=== PATIENT | female | born 1945 | race American Indian/Alaskan Native ===

== ENCOUNTER 2016-09-08 14:02 | Outpatient (CLI) | payer BC, MEDICARE ==
[2016-09-08 14:49] LABS: Albumin 3.9 g/dL (3.9-5); Anion Gap 18 mmol/L; BUN/Creatinine Ratio 26.66; Blood Urea Nitrogen 24 mg/dL (7-17); Calcium 9.3 mg/dL (8.4-10.2); Carbon Dioxide 24 mmol/L (22-30); Chloride 106.8 mmol/L (98-107); Glucose 82 mg/dL (65-100); Potassium 3.7 mmol/L (3.6-5.0); Sodium 145 mmol/L (137-145)
== END 2016-09-08 14:03 | disposition home or self-care (01) ==
LOC: LAB 14:02
PROVIDERS: ATTEND Internal Medicine Nephrology
DX: I10 Essential (primary) hypertension (principal); N20.0 Calculus of kidney; N13.30 Unspecified hydronephrosis; R94.4 Abnormal results of kidney function studies
CPT/HCPCS: 36415; 80048; 82040; 84100

== ENCOUNTER 2016-09-23 11:06 | Outpatient (CLI) | payer BC ==
--- NOTE | 2016-09-24 10:00 | Ultrasound Report ---
ULTRASOUND RENAL BILATERAL INDICATION: Abnormal kidney function. COMPARISON: Ultrasound and noncontrast CT exams performed between June and November 2014. FINDINGS: Renal sonography demonstrates renal cortical echogenicity within normal limits. Grossly preserved contours. RIGHT KIDNEY measures somewhat small at 7.9 x 4.7 x 5.1 cm with cortical thickness of 1.1 cm, though length approximately 8.[address] No right hydronephrosis. LEFT KIDNEY is 8.8 x 4.1 x 4.7 cm with cortical thickness of 1.7 cm. Slight upper, lower pole and some interpolar collecting system fullness noted, overall less prominent since September 2014 ultrasound. Hypoechoic focus more centrally in the left renal pelvis relatively more prominent/dilated than the distal collecting systems and on correlation with prior CT may be more suggestive of parapelvic cysts rather than hydronephrosis without any evidence of ureteral dilatation as well. Urinary bladder suboptimally distended and assessed. CONCLUSION: 1. Possible left renal parapelvic cysts, though subtle intrarenal collecting system fullness not entirely excluded, as described. Correlation with more remote CT or MRI imaging with contrast would also be helpful in above assessment, if available from an outside institution. 2. Few other findings, as above. Thank you for the opportunity to participate in this patient's care.
== END 2016-09-23 11:07 | disposition home or self-care (01) ==
LOC: US 11:06
PROVIDERS: ATTEND Internal Medicine Nephrology
DX: R94.4 Abnormal results of kidney function studies (principal)
CPT/HCPCS: 76770

== ENCOUNTER 2017-11-27 12:45 | Outpatient (CLI) | payer BC, MEDICARE ==
[2017-11-27 13:41] LABS: Albumin 4.1 g/dL (3.9-5); BUN/Creatinine Ratio 19; Blood Urea Nitrogen 17 mg/dL (7-17); Calcium 9.5 mg/dL (8.4-10.2); Hemolysis Index 29; Uric Acid 6.9 mg/dL (3.5-7.6)
== END 2017-11-27 12:46 | disposition home or self-care (01) ==
LOC: LAB 12:45
PROVIDERS: ATTEND Internal Medicine Nephrology
DX: I10 Essential (primary) hypertension (principal); R94.4 Abnormal results of kidney function studies; N20.0 Calculus of kidney; N13.30 Unspecified hydronephrosis; Z90.710 Acquired absence of both cervix and uterus
CPT/HCPCS: 36415; 80048; 82040; 84100; 84550

== ENCOUNTER 2018-05-27 11:11 | Outpatient (CLI) | payer BC ==
[2018-05-27 11:51] LABS: Albumin 4.4 g/dL (3.9-5); BUN/Creatinine Ratio 22; Blood Urea Nitrogen 22 mg/dL (7-17); Calcium 9.9 mg/dL (8.4-10.2); Hemolysis Index 4
== END 2018-05-27 11:12 | disposition home or self-care (01) ==
LOC: LAB 11:11
PROVIDERS: ATTEND Internal Medicine Nephrology
DX: R94.4 Abnormal results of kidney function studies (principal); I10 Essential (primary) hypertension; Z90.710 Acquired absence of both cervix and uterus
CPT/HCPCS: 36415; 80048; 82040; 84100

== ENCOUNTER 2018-06-17 12:03 | Outpatient (CLI) | payer BC ==
[2018-06-17 12:44] LABS: Bilirubin,Urine NEG (Negative); Blood,Urine NEG (Negative); Color,Urine Yellow (Yellow); Mucus,Urine FEW /HPF; Protein,Urine <15 mg/dL mg/dL (Negative); Urobilinogen,Urine < 2.0 mg/dL (<2.0)
[2018-06-17 13:05] LABS: Albumin 4.3 g/dL (3.9-5); BUN/Creatinine Ratio 17; Blood Urea Nitrogen 17 mg/dL (7-17); Calcium 9.9 mg/dL (8.4-10.2); Hemolysis Index 147
== END 2018-06-17 12:04 | disposition home or self-care (01) ==
LOC: LAB 12:03
PROVIDERS: ATTEND Internal Medicine Nephrology
DX: I10 Essential (primary) hypertension (principal); R94.4 Abnormal results of kidney function studies; N20.0 Calculus of kidney; N13.30 Unspecified hydronephrosis; Z90.710 Acquired absence of both cervix and uterus
CPT/HCPCS: 36415; 80048; 81001; 82040; 84100

== ENCOUNTER 2018-11-17 12:04 | Inpatient (IN) | payer MEDICARE ==
--- NOTE | 2018-11-17 12:26 | Emergency Department Report ---
Blank Doc - Documentation Documentation: This is a 73-year-old female that presents with chest pain and SOB. This initial assessment/diagnostic orders/clinical plan/treatment(s) is/are subject to change based on patient's health status, clinical progression and re- assessment by fellow clinical providers in the ED. Further treatment and workup at subsequent clinical providers discretion. Patient/guardians urged not to elope from the ED as their condition may be serious if not clinically assessed and managed. Initial orders include: 1- Patient sent to MAIN for further evaluation and treatment 2- labs 3- EKG 4- CXR
--- NOTE | 2018-11-17 12:57 | XRay Report ---
CHEST 2 VIEWS INDICATION / CLINICAL INFORMATION: Chest Pain. Heaviness in the chest for a few days. COMPARISON: None available. FINDINGS: SUPPORT DEVICES: None. HEART / MEDIASTINUM: The heart size and pulmonary vasculature are normal. There is mild aortic tortuo sity without aneurysm. LUNGS / PLEURA: No significant pulmonary or pleural abnormality. No pneumothorax. ADDITIONAL FINDINGS: No significant additional findings. IMPRESSION: No acute findings. Signer Name: Danny Anand MD Signed: 11/17/2018 12:53 PM Workstation Name: [id number]
[2018-11-17 13:13] LABS: Basophils % (Auto) 0.7 % (0.0-1.8); Eosinophils # (Auto) 0.1 K/mm3 (0.0-0.4); Eosinophils % (Auto) 2.3 % (0.0-4.3); Hematocrit 43.7 % (30.3-42.9); Hemoglobin 14.6 gm/dl (10.1-14.3); Lymphocytes # (Auto) 1.3 K/mm3 (1.2-5.4); Lymphocytes % (Auto) 24.3 % (13.4-35.0); Mean Corpuscular HGB Conc 34 % (30-34); Mean Corpuscular Volume 90 fl (79-97); Monocytes # (Auto) 0.4 K/mm3 (0.0-0.8); Monocytes % (Auto) 8.4 % (0.0-7.3); Platelet Count 207 K/mm3 (140-440); Red Blood Count 4.87 M/mm3 (3.65-5.03); Red Cell Distribution Width 16.6 % (13.2-15.2)
[2018-11-17 13:23] LABS: INR 0.98 (0.87-1.13)
[2018-11-17 13:24] LABS: Partial Thromboplastin Time 27.5 Sec. (24.2-36.6)
--- NOTE | 2018-11-17 13:48 | Emergency Department Report ---
ED Chest Pain HPI - General Chief Complaint: Chest Pain Stated Complaint: CHEST PAIN Time Seen by Provider: 11/17/18 12:24 Source: patient Mode of arrival: Ambulatory Limitations: No Limitations - History of Present Illness Initial Comments: 73-year-old -Dominican female presents to the emergency department with complaint of some intermittent midsternal chest pressure and shortness of breath that has been going on for the past 1-2 days. She has not taken anything for her symptoms prior to arrival. No recent travel or sick contacts at home. She denies any fever, back pain, diaphoresis, nausea, vomiting or lower extremity swelling. She has a past medical history of hypertension. No family history of early cardiac disease or cardiac events. Her primary care physician is Dr. Flores. - Related Data Home Medications Medication Instructions Recorded Confirmed Last Taken Allopurinol [Zyloprim] 1 tab PO DAILY 11/17/18 11/17/18 Unknown Aspirin [Aspirin BABY CHEW TAB] 1 tab PO DAILY 11/17/18 11/17/18 Unknown AtorvaSTATin [Lipitor] 1 tab PO DAILY 11/17/18 11/17/18 Unknown Olmesartan Medoxomil [Benicar] 1 tab PO DAILY 11/17/18 11/17/18 Unknown hydroCHLOROthiazide [HCTZ] 1 tab PO DAILY 11/17/18 11/17/18 Unknown metFORMIN [Glucophage] 1 tab PO BID 11/17/18 11/17/18 Unknown Allergies Allergy/AdvReac Type Severity Reaction Status Date / Time No Known Allergies Allergy Unverified 06/23/14 14:47 Heart Score - HEART Score History: Moderately suspicious EKG: Normal Age: > 65 Risk factors: 1-2 risk factors Troponin: < normal limit HEART Score: 4 - Critical Actions Critical Actions: 4-6 pts:12-16.6% risk of adverse cardiac event. Should be admitted ED Review of Systems ROS: Stated complaint: CHEST PAIN Other details as noted in HPI Comment: All other systems reviewed and negative Constitutional: denies: chills, fever Eyes: denies: eye pain, vision change ENT: denies: ear pain, throat pain Respiratory: shortness of breath. denies: cough Cardiovascular: chest pain. denies: palpitations Gastrointestinal: denies: abdominal pain, vomiting Genitourinary: denies: dysuria, discharge Musculoskeletal: denies: back pain, arthralgia Skin: denies: rash, lesions Neurological: denies: headache, weakness ED Past Medical Hx - Past Medical History Previous Medical History?: Yes Hx Hypertension: Yes - Surgical History Additional Surgical History: HYSTERECTOMY - Social History Smoking Status: Never Smoker Substance Use Type: None - Medications Home Medications: Home Medications Medication Instructions Recorded Confirmed Last Taken Type Allopurinol [Zyloprim] 1 tab PO DAILY 11/17/18 11/17/18 Unknown History Aspirin [Aspirin BABY CHEW TAB] 1 tab PO DAILY 11/17/18 11/17/18 Unknown History AtorvaSTATin [Lipitor] 1 tab PO DAILY 11/17/18 11/17/18 Unknown History Olmesartan Medoxomil [Benicar] 1 tab PO DAILY 11/17/18 11/17/18 Unknown History hydroCHLOROthiazide [HCTZ] 1 tab PO DAILY 11/17/18 11/17/18 Unknown History metFORMIN [Glucophage] 1 tab PO BID 11/17/18 11/17/18 Unknown History ED Physical Exam - General Limitations: No Limitations - Other Other exam information: GENERAL: The patient is well-developed well-nourished. HENT: Normocephalic. Atraumatic. Patient has moist mucous membranes. EYES: Extraocular motions are intact. NECK: Supple. Trachea is midline. CHEST/LUNGS: Clear to auscultation. There is no respiratory distress noted. HEART/CARDIOVASCULAR: Regular. There is no tachycardia. There is no murmur. ABDOMEN: Abdomen is soft, nontender. Patient has normal bowel sounds. There is no abdominal distention. SKIN: Skin is warm and dry. NEURO: The patient is awake, alert, and oriented. The patient is cooperative. The patient has no focal neurologic deficits. The patient has normal speech. MUSCULOSKELETAL: There is no tenderness or deformity. There is no limitation range of motion. There is no evidence of acute injury. ED Course Vital Signs 11/17/18 11/17/18 11/17/18 12:26 13:42 13:46 Temperature 97.9 F Pulse Rate 78 Respiratory 20 Rate Blood Pressure 118/80 Blood Pressure [Left] O2 Sat by Pulse 97 100 100 Oximetry 11/17/18 11/17/18 11/17/18 14:00 14:02 14:15 Temperature 98.5 F Pulse Rate 71 70 74 Respiratory 17 15 21 Rate Blood Pressure 143/73 Blood Pressure 143/73 [Left] O2 Sat by Pulse 100 100 100 Oximetry 11/17/18 11/17/18 11/17/18 14:31 15:15 16:00 Temperature Pulse Rate 69 66 55 L Respiratory 18 14 16 Rate Blood Pressure 143/73 143/73 140/64 Blood Pressure [Left] O2 Sat by Pulse 100 100 100 Oximetry 11/17/18 11/17/18 11/17/18 18:00 18:31 18:41 Temperature Pulse Rate 56 L 58 L 63 Respiratory 18 13 13 Rate Blood Pressure 142/76 149/68 Blood Pressure 149/68 [Left] O2 Sat by Pulse 99 100 100 Oximetry 11/17/18 11/17/18 11/17/18 19:15 19:31 20:31 Temperature 98.2 F Pulse Rate 58 L 59 L 88 Respiratory 12 12 Rate Blood Pressure 150/84 160/78 Blood Pressure 159/71 [Left] O2 Sat by Pulse 100 99 97 Oximetry 11/17/18 11/17/18 11/17/18 21:00 21:31 21:41 Temperature Pulse Rate 65 62 60 Respiratory 13 13 11 L Rate Blood Pressure 140/57 131/61 131/61 Blood Pressure [Left] O2 Sat by Pulse 100 100 100 Oximetry PILI score - Pili Score Age > 65: (1) Yes Aspirin use within the Past 7 Days: (0) No 3 or more CAD Risk Factors: (0) No 2 or more Angina events in past 24 hrs: (1) Yes Known CAD with more than 50% Stenosis: (0) No Elevated Cardiac Markers: (0) No ST Deviation Greater than 0.5mm: (0) No PILI Score: 2 ED Medical Decision Making - Lab Data Result diagrams: 11/18/18 04:02 11/18/18 04:02 - EKG Data -: EKG Interpreted by Me EKG shows normal: sinus rhythm, axis, intervals, QRS complexes (low voltage), ST-T waves Rate: normal - EKG Data When compared to previous EKG there are: previous EKG unavailable Interpretation: normal EKG - Radiology Data Radiology results: report reviewed interpreted by me: Chest x-ray does not show any acute process. There are no pleural effusions, obvious pneumonia and there is no pneumothorax. CT angio chest INDICATION / CLINICAL INFORMATION: CP, elevated dimer. TECHNIQUE: Axial CT images were obtained after injection of Omnipaque 350, 100 cc IV contrast using CTA protocol. 3 plane MIP / 3D reconstructions were produced. All CT scans at this location are performed using CT dose reduction for ALARA by means of automated exposure control. COMPARISON: None available. FINDINGS: Evaluation of the lungs demonstrate mild dependent atelectasis and basilar interstitial disease. Negative for mass, infiltrate or pleural fluid. No mediastinal mass or adenopathy is present. Imaging of the upper abdomen demonstrates renal peripelvic cysts left greater than right and a 3.3 cm cyst within the lateral segment of the left hepatic lobe. The bolus is suboptimal but adequate. Negative for pulmonary embolus, dissection or aneurysm. Mild ectasia is noted at the aorta. IMPRESSION: Negative for pulmonary embolus or pneumonia. - Medical Decision Making This patient presents to the emergency department with complaint of a pressure- like sensation to the chest like someone is sitting on her chest. EKG did not show any signs of ST elevation HI. She has the risk factors of advanced age and hypertension. EKG did not show any signs of ST elevation HI. So far the patient has negative troponins 2 but she did have a slightly elevated and equiv ocal d-dimer. Chest x-ray did not show any acute process. CT angiography did not show any pulmonary embolism, dissection, aneurysm or any other acute process. However the patient still continues to have some chest discomfort and has not had a full cardiac workup including a stress test in quite some time. She has a heart score of 4. Follow these reasons, the patient will be admitted to the hospital for further evaluation and treatment and was accepted for admission by the hospitalist, Dr. Sheridan. - Differential Diagnosis HI, PE, costochondritis, GERD Critical Care Time: No Critical care attestation.: If time is entered above; I have spent that time in minutes in the direct care of this critically ill patient, excluding procedure time. ED Disposition Clinical Impression: Angina at rest, Acute chest pain HTN (hypertension) Qualifiers: Hypertension type: essential hypertension Qualified Code(s): I10 - Essential (primary) hypertension Disposition: OP ADMIT IP TO THIS HOSP Is pt being admited?: Yes Condition: Fair Time of Disposition: 10:29
[2018-11-17 14:50] LABS: BUN/Creatinine Ratio 20; Blood Urea Nitrogen 22 mg/dL (7-17); Calcium 10.1 mg/dL (8.4-10.2); Hemolysis Index 10
[2018-11-17] MEDS ORDERED: TORADOL IV ONE (18:18)
[2018-11-17] MEDS ORDERED: BABY ASPIRIN PO ONE (18:18)
--- NOTE | 2018-11-17 19:21 | History and Physical Report ---
History of Present Illness Chief complaint: i have a pain in my chest History of present illness: 73 YO Female with HTN presents to ED for evaluation. Pt states that she has experienced pain in her chest over the past 2 days with worsening symptoms over the past 1 day. Pt states that her pain is 5/10, Midsternal, Nonradiating, not worsened with exertion, not relieved with rest, associated with shortness of breath. Pt acknowledges decreased exercise tolerance, dypsnea with exertion, dypsnea at rest. Pt transported to [facility] via private vehicle. Pt seen and evaluated in ED and found to have Angina as well as symptoms consistent with Diastolic CHF. Pt admitted to telemetry and initiated on chest pain protocol. Cardiology team consulted in ED. Pt denies fever, chills, palpitations, NVD, Prolonged travel/immobility, unilateral leg swelling, calf pain, Individual/Family history of DVT/PE/Bleeding/Blood Clotting Disorders. No prior admission for review. All listed medication reconciled at time of admission. Past History Past Medical History: hypertension Past Surgical History: hysterectomy Social history: . denies: smoking, alcohol abuse, prescription drug abuse Family history: hypertension Medications and Allergies Allergies Allergy/AdvReac Type Severity Reaction Status Date / Time No Known Allergies Allergy Unverified 06/23/14 14:47 Home Medications Medication Instructions Recorded Confirmed Last Taken Type Ciprofloxacin HCl [Ciprofloxacin 500 mg PO Q12H #20 tab 06/23/14 Unknown Rx TAB] HYDROcodone/APAP 5-325 [[place] 1 each PO Q6HR PRN #20 tablet 06/23/14 Unknown Rx 5-325 mg TAB] Review of Systems Constitutional: no weight loss, no weight gain, no fever, no chills Ears, nose, mouth and throat: no ear pain, no ear discharge, no tinnitis, no decreased hearing, no nose pain, no nasal congestion Breasts: no change in shape, no swelling, no mass Cardiovascular: chest pain, shortness of breath, dyspnea on exertion, decreased exercise tolerance, no palpitations, no rapid/irregular heart beat, no edema Respiratory: no cough, no cough with sputum, no excessive sputum, no hemoptysis Gastrointestinal: no nausea, no vomiting, no diarrhea, no constipation Genitourinary Female: no pelvic pain, no flank pain, no menorrhagia, no dysuria, no urinary frequency Rectal: no pain, no incontinence, no bleeding Musculoskeletal: no neck stiffness, no neck pain, no shooting arm pain, no arm numbness/tingling, no low back pain Integumentary: no rash, no pruritis, no redness, no sores, no wounds Neurological: no paralysis, no weakness, no parathesias, no numbness, no tingling, no seizures Psychiatric: no anxiety, no memory loss, no change in sleep habits, no sleep disturbances, no insomnia, no hypersomnia, no change in appetite Endocrine: no cold intolerance, no heat intolerance, no polyphagia, no excessive thirst, no polydipsia, no polyuria Hematologic/Lymphatic: no easy bruising, no easy bleeding, no lymphadenopathy, no lymphedema Allergic/Immunologic: no urticaria, no allergic rhinitis, no wheezing, no persistent infections Exam - Constitutional Vitals: Temp Pulse Resp BP Pulse Ox 98.5 F 63 13 149/68 100 11/17/18 14:02 11/17/18 18:41 11/17/18 18:41 11/17/18 18:41 11/17/18 18:41 General appearance: Present: mild distress - EENT Eyes: Present: PERRL ENT: hearing intact, clear oral mucosa - Neck Neck: Present: supple, normal ROM - Respiratory Respiratory effort: normal Respiratory: bilateral: CTA - Cardiovascular Heart Sounds: Present: S1 & S2. Absent: rub, click - Extremities Extremities: pulses symmetrical, No edema Peripheral Pulses: within normal limits - Abdominal General gastrointestinal: Present: soft, non-tender, non-distended, normal bowel sounds Female genitourinary: Present: normal - Integumentary Integumentary: Present: clear, warm, dry - Musculoskeletal Musculoskeletal: gait normal, strength equal bilaterally - Psychiatric Psychiatric: appropriate mood/affect, intact judgment & insight - Neurologic Neurologic: CNII-XII intact, moves all extremities Results - Labs CBC & Chem 7: 11/17/18 12:59 11/17/18 12:59 Labs: Abnormal lab results 11/17/18 11/17/18 11/17/18 Range/Units 12:59 12:59 13:58 Hgb 14.6 H (10.1-14.3) gm/dl Hct 43.7 H (30.3-42.9) % RDW 16.6 H (13.2-15.2) % [place] % (Auto) 8.4 H (0.0-7.3) % D-Dimer 259.00 H (0-234) ng/mlDDU Chloride 108.1 H (98-107) mmol/L Carbon Dioxide 21 L (22-30) mmol/L BUN 22 H (7-17) mg/dL Assessment and Plan - Patient Problems (1) Angina at rest Current Visit: Yes Status: Acute Plan to address problem: Admit to telemetry, serial cardiac enzymes, ekg, telemetry, cardiology consulted in ED, Morphine, supplemental oxygen, nitro, aspirin, stress test (2) Diastolic CHF Current Visit: Yes Status: Acute Qualifiers: Heart failure chronicity: acute Qualified Code(s): I50.31 - Acute diastolic (congestive) heart failure Plan to address problem: Admit to telemetry, strict I/O, daily weight, afterload reduction, monitor uop q shift, chest x ray, pulse oximetry, Echo, cardiology consulted, thyroid panel, magnesium level. (3) HTN (hypertension) Current Visit: Yes Status: Acute Qualifiers: Hypertension type: essential hypertension Qualified Code(s): I10 - Essential (primary) hypertension Plan to address problem: Monitor BP q shift, supportive care. (4) DVT prophylaxis Current Visit: Yes Status: Acute Plan to address problem: SCD to BLE while in bed, Pt ambulatory.
[2018-11-17] MEDS ORDERED: MORPHINE IV PRN (19:22)
[2018-11-17] MEDS ORDERED: SODIUM CHLORIDE FLUSH SYRINGE 10 ML IV PRN ×2 (19:22)
[2018-11-17] MEDS ORDERED: ZOFRAN IV PRN (19:22)
[2018-11-17] MEDS ORDERED: NITROSTAT SL PRN (19:22)
[2018-11-17] MEDS ORDERED: PROVENTIL IH PRN (19:22)
[2018-11-17] MEDS ORDERED: TYLENOL PO PRN (19:22)
[2018-11-17] MEDS ORDERED: PERCOCET 5/325 PO PRN (19:22)
--- NOTE | 2018-11-17 20:28 | Cat Scan Report ---
CT angio chest INDICATION / CLINICAL INFORMATION: CP, elevated dimer. TECHNIQUE: Axial CT images were obtained after injection of Omnipaque 350, 100 cc IV contrast using CTA protocol . 3 plane MIP / 3D reconstructions were produced. All CT scans at this location are performed using C T dose reduction for ALARA by means of automated exposure control. COMPARISON: None available. FINDINGS: Evaluation of the lungs demonstrate mild dependent atelectasis and basilar interstitial disease. Nega tive for mass, infiltrate or pleural fluid. No mediastinal mass or adenopathy is present. Imaging of the upper abdomen demonstrates renal peripelvic cysts left greater than right and a 3.3 cm cyst withi n the lateral segment of the left hepatic lobe. The bolus is suboptimal but adequate. Negative for pulmonary embolus, dissection or aneurysm. Mild ec hilda is noted at the aorta. IMPRESSION: Negative for pulmonary embolus or pneumonia. Signer Name: Kings Helton MD Signed: 11/17/2018 8:23 PM Workstation Name: [id number]
[2018-11-17 20:37] LABS: Free T4 (Free Thyroxine) 1.37 ng/dL (0.76-1.46)
[2018-11-17] MEDS: SODIUM CHLORIDE FLUSH SYRINGE 10 ML IV SCH (22:33)
[2018-11-17] MEDS: PEPCID PO SCH (22:33)
[2018-11-18 04:30] LABS: Basophils % (Auto) 0.6 % (0.0-1.8); Eosinophils # (Auto) 0.2 K/mm3 (0.0-0.4); Eosinophils % (Auto) 4.1 % (0.0-4.3); Hematocrit 42.1 % (30.3-42.9); Lymphocytes # (Auto) 1.4 K/mm3 (1.2-5.4); Lymphocytes % (Auto) 29.7 % (13.4-35.0); Mean Corpuscular HGB Conc 33 % (30-34); Mean Corpuscular Volume 89 fl (79-97); Monocytes # (Auto) 0.4 K/mm3 (0.0-0.8); Monocytes % (Auto) 8.6 % (0.0-7.3); Platelet Count 207 K/mm3 (140-440); Red Blood Count 4.72 M/mm3 (3.65-5.03); Red Cell Distribution Width 17.2 % (13.2-15.2)
[2018-11-18 04:58] LABS: Alanine Aminotransferase 20 units/L (7-56); Albumin 3.6 g/dL (3.9-5); BUN/Creatinine Ratio 23; Blood Urea Nitrogen 21 mg/dL (7-17); Calcium 8.9 mg/dL (8.4-10.2); Hemolysis Index 10
[2018-11-18] MEDS ORDERED: K-DUR PO ONE (05:28)
[2018-11-18] MEDS ORDERED: LEXISCAN IV ONE ×2 (07:26→07:32)
[2018-11-18] MEDS: PEPCID PO SCH (14:34)
[2018-11-18] MEDS: SODIUM CHLORIDE FLUSH SYRINGE 10 ML IV SCH (14:35)
[2018-11-18 17:13] VITALS: BP 111/68
--- NOTE | 2018-11-18 18:26 | Consultation ---
History of Present Illness Consult date: 11/18/18 Consult reason: chest pain History of present illness: 73-year-old woman admitted to the hospital with atypical, nonexertional chest pain. Prior history of hypertension and diabetes. On presentation, ECG was sinus rhythm, benign with no acute ischemic changes, cardiac isoenzymes are negative. She underwent a Lexiscan thallium stress test, normal perfusion study. An echocardiogram demonstrated normal left ventricular study function, ejection fraction 50-55%. Past History Past Medical History: diabetes, hypertension Past Surgical History: hysterectomy Social history: . denies: smoking, alcohol abuse, prescription drug abuse Family history: hypertension Medications and Allergies Allergies Allergy/AdvReac Type Severity Reaction Status Date / Time No Known Allergies Allergy Unverified 06/23/14 14:47 Home Medications Medication Instructions Recorded Confirmed Last Taken Type Allopurinol [Zyloprim] 1 tab PO DAILY 11/17/18 11/17/18 Unknown History Aspirin [Aspirin BABY CHEW TAB] 1 tab PO DAILY 11/17/18 11/17/18 Unknown History AtorvaSTATin [Lipitor] 1 tab PO DAILY 11/17/18 11/17/18 Unknown History Olmesartan Medoxomil [Benicar] 1 tab PO DAILY 11/17/18 11/17/18 Unknown History hydroCHLOROthiazide [HCTZ] 1 tab PO DAILY 11/17/18 11/17/18 Unknown History metFORMIN [Glucophage] 1 tab PO BID 11/17/18 11/17/18 Unknown History Active Meds: Active Medications Acetaminophen (Tylenol) 650 mg PO Q4H PRN PRN Reason: Pain MILD(1-3)/Fever >100.5/NEVAREZ Albuterol (Proventil) 2.5 mg IH Q4HRT PRN PRN Reason: Shortness Of Breath Famotidine (Pepcid) 10 mg PO BID WINDY Last Admin: 11/18/18 14:34 Dose: 10 mg Documented by: Morphine Sulfate (Morphine) 2 mg IV Q4H PRN PRN Reason: Pain, Moderate (4-6) Nitroglycerin (Nitrostat) 0.4 mg SL Q5M PRN PRN Reason: Chest Pain Ondansetron HCl (Zofran) 4 mg IV Q8H PRN PRN Reason: Nausea And Vomiting Oxycodone/Acetaminophen (Percocet 5/325) 1 tab PO Q6H PRN PRN Reason: Pain, Moderate (4-6) Sodium Chloride (Sodium Chloride Flush Syringe 10 Ml) 10 ml IV BID WINDY Last Admin: 11/18/18 14:35 Dose: 10 ml Documented by: Sodium Chloride (Sodium Chloride Flush Syringe 10 Ml) 10 ml IV PRN PRN PRN Reason: LINE FLUSH Sodium Chloride (Sodium Chloride Flush Syringe 10 Ml) 10 ml IV PRN PRN PRN Reason: LINE FLUSH Review of Systems Cardiovascular: chest pain, shortness of breath, no orthopnea, no palpitations, no rapid/irregular heart beat, no edema, no syncope, no lightheadedness Physical Examination Vital Signs Temp Pulse Resp BP Pulse Ox 97.9 F 78 20 118/80 97 11/17/18 12:26 11/17/18 12:26 11/17/18 12:26 11/17/18 12:26 11/17/18 12:26 General appearance: no acute distress HEENT: Positive: PERRL Neck: Positive: neck supple Cardiac: Positive: Reg Rate and Rhythm Lungs: Positive: clear to auscultation Neuro: Positive: Grossly Intact Abdomen: Positive: Soft Female genitourinary: deferred Skin: Positive: Clear Extremities: Absent: edema Results 11/18/18 04:02 11/18/18 04:02 Cardiac Enzymes 11/18/18 Range/Units 04:02 AST 20 (5-40) units/L CBC 11/18/18 Range/Units 04:02 WBC 4.6 (4.5-11.0) K/mm3 RBC 4.72 (3.65-5.03) M/mm3 Hgb 14.0 (10.1-14.3) gm/dl Hct 42.1 (30.3-42.9) % Plt Count 207 (140-440) K/mm3 Lymph # 1.4 (1.2-5.4) K/mm3 Lewis # 0.4 (0.0-0.8) K/mm3 Eos # 0.2 (0.0-0.4) K/mm3 Baso # 0.0 (0.0-0.1) K/mm3 Comprehensive Metabolic Panel 11/18/18 Range/Units 04:02 Sodium 142 (137-145) mmol/L Potassium 3.5 L (3.6-5.0) mmol/L Chloride 108.5 H (98-107) mmol/L Carbon Dioxide 21 L (22-30) mmol/L BUN 21 H (7-17) mg/dL Creatinine 0.9 (0.7-1.2) mg/dL Glucose 101 H (65-100) mg/dL Calcium 8.9 (8.4-10.2) mg/dL AST 20 (5-40) units/L ALT 20 (7-56) units/L Alkaline Phosphatase 63 (35-129) units/L Total Protein 5.9 L (6.3-8.2) g/dL Albumin 3.6 L (3.9-5) g/dL EKG interpretations - Telemetry EKG Rhythm: Sinus Rhythm Assessment and Plan - Patient Problems (1) Chest pain Current Visit: Yes Status: Acute Plan to address problem: Cardiac chest pain workup is negative, normal Lexiscan thallium stress test, e chocardiogram demonstrates normal left ventricle systolic function.
--- NOTE | 2018-11-18 18:52 | Discharge Summary ---
Providers - Providers Date of Admission: 11/17/18 20:51 Date of discharge: 11/18/18 Attending physician: PAVEL YOUNG 11/17/18 Consult to Cardiac Rehabilitation [CONS] Routine Reason For Exam: Phase I 11/17/18 19:22 Consult to Cardiology [CONS] Routine Consulting Provider: LESLI SARAVIA Reason For Exam: angina/chf Primary care physician: TRICIA SKINNER Hospitalization Condition: Good Hospital course: 73-year-old with a history of hypertension presented with 2 day history of shortness of breath and chest pain. 10. Patient admitted for cardiac workup had stress tests negative echocardiogram ejection fraction 60% cardiac isoenzymes negative EKG normal sinus rhythm. Patient stable chest x-ray negative CTA of chest negative patient stable to be discharged home with follow- up with primary care physician in 3-5 days. Disposition: TO HOME OR SELFCARE Core Measure Documentation - Palliative Care Palliative Care/ Comfort Measures: Not Applicable - Core Measures Any of the following diagnoses?: none Exam - Constitutional Vitals: Temp Pulse Resp BP Pulse Ox 99.3 F 74 16 111/68 98 11/18/18 15:44 11/18/18 15:44 11/18/18 15:44 11/18/18 15:44 11/18/18 15:44 Plan Activity: no restrictions Diet: low cholesterol Special Instructions: record daily BP diary Follow up with: TRICIA SKINNER MD [Primary Care Provider] - 7 Days
--- NOTE | 2018-11-19 00:25 | Treadmill Report ---
THALLIUM STRESS TEST. LEFT VENTRICLE: Left ventricular chamber size is within normal spread. Perfusion study demonstrates homogeneous uptake of the tracer in all segments. No significant defects identified. There is normal apical thinning. Gated analysis demonstrates normal left ventricular systolic function, ejection fraction greater than 70%. CONCLUSION: Normal myocardial perfusion study. JOB# [id number] CA/NTS
== END 2018-11-18 19:49 | disposition home or self-care (01) | DRG 291 ==
LOC: ED 12:04 → 4A 20:51
PROVIDERS: ADMIT Internal Medicine; ATTEND Internal Medicine
DX: I11.0 Hypertensive heart disease with heart failure (principal); I50.31 Acute diastolic (congestive) heart failure; R07.89 Other chest pain; E11.9 Type 2 diabetes mellitus without complications; Z79.84 Long term (current) use of oral hypoglycemic drugs; Z79.899 Other long term (current) drug therapy; Z79.82 Long term (current) use of aspirin; Z90.710 Acquired absence of both cervix and uterus; Z82.49 Family history of ischemic heart disease and other diseases of the circulatory system
CPT/HCPCS: 36415; 71046; 71275; 78452; 80048; 80053; 82962; 83735; 83880; 84439; 84443; 84484; 85025; 85379; 85610; 85730; 93005; 93010; 93017; 93306; 96374; 99285; G0378; A9502; J1885; J2785; Q9967